=== PATIENT | female | born 1980 | race Caucasian/White ===

== ENCOUNTER 2020-12-07 20:21 | Inpatient (IN) | payer OTHER ==
[~2020-12-07] VITALS: Ht 162.6 cm; Wt 101.6 kg
[2020-12-07 20:29] VITALS: BP 126/73
[2020-12-07] MEDS ORDERED: GRALISE300 MG PO (20:32)
[2020-12-07] MEDS ORDERED: LEXAPRO20 MG PO (20:32)
[2020-12-07] MEDS ORDERED: INTUNIV2 MG PO (20:32)
[2020-12-07] MEDS ORDERED: SUBOXONE 8 MG-1 EAC3 SUBLING (20:32)
[2020-12-07 21:07] LABS: ABSOLUTE EOSINOPHILS 0.2 thou/uL (0.0-0.7); ABSOLUTE LYMPHOCYTES 1.9 thou/uL (0.8-5.3); ABSOLUTE MONOCYTES 0.6 thou/uL (0.0-1.2); ABSOLUTE NEUTROPHILS 5.1 thou/uL (1.6-8.1); BASOPHILS 0.4 %; EOSINOPHILS 2.1 %; HEMATOCRIT 33.9 % (37.0-47.0); HEMOGLOBIN 11.6 gm/dL (12.0-15.0); LYMPHOCYTES 23.9 %; MCH 30.3 pg (26.0-34.0); MCHC 34.3 g/dL (28.0-37.0); MCV 88.3 fL (80.0-100.0); MONOCYTES 8.3 %; MPV 9.3 fl. (7.2-11.1); NUCLEATED RBCS 0 /100WBC; PLATELET COUNT* 139 thou/uL (150-400); POLYS 65.3 %; RBC 3.84 mil/uL (4.20-5.00); RDW-CV 12.5 % (10.5-14.5); WBC 7.8 thou/uL (4.0-11.0)
[2020-12-07 21:16] LABS: CALCIUM 8.4 mg/dL (8.5-10.1); CREATININE 0.7 mg/dL (0.6-1.3); POTASSIUM 4.6 mmol/L (3.5-5.1)
[2020-12-07 21:21] LABS: ALBUMIN 3.5 g/dL (3.4-5.0); TOTAL BILIRUBIN 0.2 mg/dL (<0.1-1.0)
[2020-12-08] VITALS (8 sets, daily range): BP systolic 103–171; BP diastolic 59–78
[2020-12-08] MEDS ORDERED: GRALISE1 EAC1 PO (14:31)
[2020-12-09] VITALS: BP 124/65
[2020-12-09 05:24] LABS: HEMATOCRIT 28.9 % (37.0-47.0); HEMOGLOBIN 10.2 gm/dL (12.0-15.0); MCH 30.5 pg (26.0-34.0); MCHC 35.1 g/dL (28.0-37.0); MCV 86.9 fL (80.0-100.0); MPV 10.2 fl. (7.2-11.1); RBC 3.33 mil/uL (4.20-5.00); RDW-CV 12.5 % (10.5-14.5); WBC 9.9 thou/uL (4.0-11.0)
[2020-12-09 05:38] VITALS: BP 127/66
[2020-12-09 05:38] LABS: CALCIUM 8.1 mg/dL (8.5-10.1); CREATININE 0.7 mg/dL (0.6-1.3)
[2020-12-09 08:30] VITALS: BP 125/61
--- NOTE | 2020-12-09 09:17 | OP ---
[address] [address] OPERATIVE REPORT Name: MANMENDOZADAVID Room: [address] IN M.R.#: [id number] Admission: 12/07/20 Attend Phys: Theo Hinton MD Discharge: Date of : 82 Report #: [id number] THIS REPORT FOR: cc: FAM - No family physician/PCP FAM - No family physician/PCP Moe Zamora II, DO ~ DATE OF SURGERY: 12/08/2020 PREOPERATIVE DIAGNOSIS: Left hand and left ring finger septic tenosynovitis. POSTOPERATIVE DIAGNOSIS: Left hand and left ring finger septic tenosynovitis. PROCEDURES: 1. Left hand irrigation and debridement. 2. Left ring finger irrigation and debridement down to bone. SURGEON: Moe Zamora II, DO ANODE WORKER: None. ANESTHESIA: Per operative record. ESTIMATED BLOOD LOSS: Minimal, 5 mL. ANTIBIOTICS: Unasyn. DRAINS: None. COMPLICATIONS: None. CONDITION OF THE PATIENT: Stable to recovery room. OPERATIVE PROCEDURE: The patient was taken to the operative suite and placed supine on the operating table and given appropriate anesthesia. The patient's left hand was placed with a well-padded tourniquet. This was inflated throughout the procedure for any excess blood loss. The left hand was sterilely prepped and draped. Surgery began by longitudinal incision over the radial and ulnar aspect of the left ring finger. This was carried down to subcutaneous tissues. Blunt dissection was then performed around the undersurface and volar side of the hand breaking through all the compartments to allow for irrigation and utilizing 3 liters of bacitracin saline to go throughout this region. This was also curetted to remove excess necrotic tissue from the puncture wounds of the cat bite on both the medial and lateral sides. There was also shown to be swelling and erythema in the palm of the left hand. Incision was then made over the distal portion of the palm in line with the ring finger ____ subcutaneous tissues. There was noted to be small areas [place] [address] OPERATIVE REPORT Name: DAVID HOPE Room: [address] IN ..#: [id number] Admission: 12/07/20 Attend Phys: Theo Hinton MD Discharge: Date of : 82 Report #: [id number] pockets. This was probed both medial and lateral directions to open up and expose all excess spaces. Curetting was then performed of any necrotic tissue to. Final irrigation was continued utilizing the 3 liters of saline with bacitracin. It was then irrigated and tourniquet was deflated. Hemostasis was maintained. The areas were closed with a 4-0 nylon in simple fashion allowing the skin to be slightly to allow any excess drainage of any infectious or necrotic disease to continue to drain and closed. Sterile dressing was then applied. The patient transported to recovery room in stable condition. Counts were correct throughout the procedure. <ELECTRONICALLY SIGNED> By: Moe Zamora II, DO 12/09/2017 2057 2220Moe Zamora II DO /nt
[2020-12-09 12:00] VITALS: BP 131/72
[2020-12-09 17:00] VITALS: BP 102/58
[2020-12-09 20:00] VITALS: BP 120/66
[2020-12-10 03:17] VITALS: BP 122/71
[2020-12-10 04:50] LABS: CALCIUM 7.8 mg/dL (8.5-10.1); CREATININE 0.6 mg/dL (0.6-1.3); POTASSIUM 3.9 mmol/L (3.5-5.1)
[2020-12-10 04:51] LABS: HEMATOCRIT 27.6 % (37.0-47.0); HEMOGLOBIN 9.6 gm/dL (12.0-15.0); MCH 30.6 pg (26.0-34.0); MCHC 34.9 g/dL (28.0-37.0); MCV 87.8 fL (80.0-100.0); RBC 3.15 mil/uL (4.20-5.00); RDW-CV 12.6 % (10.5-14.5); WBC 5.7 thou/uL (4.0-11.0)
[2020-12-10 07:59] VITALS: BP 119/70
[2020-12-10 12:00] VITALS: BP 97/69
[2020-12-10 16:00] VITALS: BP 127/69
[2020-12-10 20:00] VITALS: BP 148/63
--- NOTE | 2020-12-10 23:22 | CON ---
[address] [address] CONSULTATION Name: MANMENDOZADAVID K Room: [address] IN M.R.#: [id number] Admission: 12/07/20 Attend Phys: Theo Hinton MD Discharge: Date of : 82 Report #: [id number] THIS REPORT FOR: cc: FAM - No family physician/PCP FAM - No family physician/PCP Moe Zamora II DO ~ DATE OF CONSULTATION: 12/08/2020 ORTHOPEDIC CONSULTATION CHIEF COMPLAINT: Left hand and left ring finger pain after a cat bite. 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 Did notice some immediate swelling, was seen in the ER for admission as well as the antibiotics. The patient continued to have pain within the finger, lasted for several hours throughout the day and got worse with motion. Rest does decrease the pain somewhat; however, she is still having swelling in the hand and limited range of motion of the ring finger and palm of her left hand. PAST SURGICAL HISTORY: Unremarkable. FAMILY HISTORY: Mother and father both living; noncontributory. SOCIAL HISTORY: Negative for tobacco, alcohol, or illicit drug use. REVIEW OF SYSTEMS: The patient does have occasional chills. Does have tenderness to palpation within the left hand. All other systems reviewed are negative. PHYSICAL EXAMINATION: VITAL SIGNS: Blood pressure 125/82, pulse 88, and temperature 98.6. GENERAL APPEARANCE: NAD, conversant. EYES: Anicteric sclerae, moist conjunctivae, no lid lag. PERRLA. HENT: Atraumatic. Oropharynx clear. Moist mucous membranes. No mucosal ulcerations. Normal hard and soft palates. NECK: Trachea midline, FROM. Supple. No thyromegaly or lymphadenopathy. LUNGS: Clear to auscultation bilaterally. Normal respiratory effort and no intercostal retractions. CARDIOVASCULAR: Regular rate and rhythm. No murmurs. ABDOMEN: Soft, nontender. No masses or HSM. EXTREMITIES: The patient does have swelling of the left distal extremity with lymphadenopathy. There is also noted to be erythema within the ring finger as well as palm of the left hand. SKIN: Has heightened temperature on the left hand as [place] [address] CONSULTATION Name: DAVID HOPE Room: [address] IN [facility]#: [id number] Admission: 12/07/20 Attend Phys: Theo Hinton MD Discharge: Date of : 82 Report #: [id number] noted on the ring finger, approximately middle phalanx. There is no evidence of ulcers or subcutaneous nodules throughout the remaining portion of the skin. PSYCHIATRIC: The patient has appropriate affect. NEUROLOGIC: Alert and oriented to person, place, and time. LABORATORY STUDIES: Show elevated white blood cell count. IMAGING DATA: X-rays show no evidence of fracture or dislocation of the hand. ASSESSMENT: Left hand and left ring finger septic tenosynovitis from cat bite. PLAN: At this time, the patient has tried antibiotics, both IV and oral. Had to be switched from vancomycin due to a rash. She is now on Unasyn. It is not seeming to control the issues. We will take to the operative suite for irrigation and debridement as well as cultures of the ring finger and palm of the hand as well as other treatment is indicated should any further synovium appear inflamed. The patient discussed this and assuming all risks, we discussed heart attack, stroke, blood clot as well as neurovascular compromise due to the swelling and inflammation of the finger as well as previous cat bite in the area of the nerves of the finger. The patient has discussed numbness at the tip as well as throughout the middle portion of the finger due to this cat bite region. The patient verbalized understanding, assume all risks and wished to proceed. Thank you for this consultation. <ELECTRONICALLY SIGNED> By: Moe Zamora II, DO 12/10/20 2322 2054 [id number] Zamora II, DO /nt
[2020-12-10 23:50] VITALS: BP 98/53
[2020-12-11 03:58] LABS: HEMATOCRIT 28.4 % (37.0-47.0); HEMOGLOBIN 9.9 gm/dL (12.0-15.0); MCH 30.7 pg (26.0-34.0); MCV 87.8 fL (80.0-100.0); MPV 9.3 fl. (7.2-11.1); RBC 3.23 mil/uL (4.20-5.00); RDW-CV 12.4 % (10.5-14.5); WBC 3.2 thou/uL (4.0-11.0)
[2020-12-11 03:59] LABS: CALCIUM 8.1 mg/dL (8.5-10.1); CREATININE 0.6 mg/dL (0.6-1.3); POTASSIUM 3.5 mmol/L (3.5-5.1)
[2020-12-11 08:30] VITALS: BP 116/65
[2020-12-11] MEDS ORDERED: AUGMENTIN 875-1 EACH PO (11:33)
[2020-12-11 12:00] VITALS: BP 132/67
[2020-12-11 12:07] VITALS: BP 116/65
== END 2020-12-11 13:15 | disposition home or self-care (01) | DRG 513 ==
LOC: M.ERS 20:21 → M.TBA-ER 21:09 → M.2W 12-08 13:49
PROVIDERS: Internal Medicine; Physician Assistant; ADMIT Internal Medicine; ATTEND Internal Medicine
PROC: 0JBK0ZZ Excision of Left Hand Subcutaneous Tissue and Fascia, Open Approach (ICD-10-PCS; principal; 2020-12-08)
DX: M65.142 Other infective (teno)synovitis, left hand (principal); A28.0 Pasteurellosis; S61.259A Open bite of unspecified finger without damage to nail, initial encounter; L03.012 Cellulitis of left finger; Z20.822 Contact with and (suspected) exposure to COVID-19; Z88.8 Allergy status to other drugs, medicaments and biological substances; W55.01XA Bitten by cat, initial encounter; Y93.89 Activity, other specified; Y92.89 Other specified places as the place of occurrence of the external cause; Y99.8 Other external cause status; Z88.1 Allergy status to other antibiotic agents; Z79.891 Long term (current) use of opiate analgesic; Z23 Encounter for immunization